=== PATIENT | female | born 1935 | race African-American/Black ===

== ENCOUNTER 2016-03-22 10:24 | Day surgery (SDC) | payer OTHER, BC ==
[~2016-03-22] VITALS: Ht 170.2 cm; Wt 50.4 kg
[~2016-03-22 10:24] MED LIST: ADULT LOW DOSE81 M1 PO; AMLODIPINE BESY10 MG PO; AMLODIPINE BESYL5 MG PO; AMLOPIDINE; ANUCORT-HC25 MG PR; ARICEPT10 MG PO; ASPIR 8181 M1 PO; ASPIR-LOW81 MG PO; ASPIRIN E.C.81 M1 PO; ASPIRIN81 M1 PO; Aranesp IV; Aricept PO; BENADRYL25 MG PO; BYSTOLIC5 MG PO; CALCIUM ACETAT667 MG PO; CALTRATE; CARAFATE1 GM PO; CATHFLO ACT2 MG/2 ML IJ; CIPRO500 MG PO; CLONIDINE HCL0.1 MG PO; COLACE100 MG PO; Calcium Carbonate,Ca PO; Diatx W/Zinc,Folbee PO; EPOGEN,PRO10000 UNIT IV; FLAGYL500 MG PO; FOLBEE PLUS TABL5 MG PO; FOSRENOL500 MG PO; Flovent 110 mcg IH; GABAPENTIN100 MG PO; GABAPENTIN300 MG PO; HALDOL5 MG PO; HYDROCODON-ACE1 EAC7 PO; K-Dur PO; KENALOG,ARISTOC80 GM TP; KLOR-CON M2020 MEQ PO; Keflex PO; LABETALOL HCL100 MG PO; LABETALOL HCL200 MG PO; LISINOPRIL10 MG PO; LOMOTIL TABLET1 EACH PO; Levaquin PO; MEDROL DOSEPAK4 MG PO; MEGACE40 M1 PO; MEGACE400 MG/10 PO; MOTRIN600 MG PO; NAMENDA5 MG PO; NEPHRO-VITE,1 TABLET PO; NEURONTIN100 MG PO; NEURONTIN300 MG PO; NIFEDIPINE ER60 MG PO; NORVASC; NORVASC10 MG PO; Neurontin PO; OMEPRAZOLE20 MG PO; PANTOPRAZOLE SO40 MG PO; PROCRIT10000 UNI1 IV; PROCTOCREAM-HC30 GM PR; PROTONIX40 MG PO; Phoslo PO; PriLOSEC PO; RANITIDINE HCL300 M1 PO; RANITIDINE HCL300 MG PO; RENVELA800 MG PO; Rocaltrol PO; SENSIPAR30 MG PO; ST. JOSEPH ASPI81 MG PO; TRAMADOL HCL50 MG PO; TRAZODONE HCL50 MG PO; Tylenol Regular Stre PO; ZESTRIL10 MG PO; ZESTRIL20 MG PO; ZYPREXA5 MG PO
[2016-03-22 11:00] VITALS: BP 217/97
[2016-03-22 11:00] LABS: HEMATOCRIT 25.7 % (36.0-46.0); MCH 28.1 PG (29.0-34.0); MCV 93.8 FL (83-99); MEAN PLAT.VOLUME 8.6 uM^3 (9.5-12.4); PLATELET COUNT 234 K/uL (156-360); RBC DIS.WIDTH-CV 19.9 % (11.8-14.6); RBC DIS.WIDTH-SD 60.5 % (39-53); RED BLOOD COUNT 2.74 M/uL (3.80-5.20); WHITE BLOOD COUNT 4.2 K/uL (4.1-10.2)
[2016-03-22 11:10] LABS: CHLORIDE 97 mEq/L (99-109); POTASSIUM 4.1 mEq/L (3.7-5.4); SODIUM 137 mEq/L (136-147)
[2016-03-22 11:11] LABS: GLUCOSE 85 mg/dL (70-99)
[2016-03-22 11:13] LABS: ANION GAP 11 MEQ/L (2-14)
[2016-03-22 11:15] LABS: GFR ESTIMATE (CALCULATED) 8 mL/min/
[2016-03-22 11:16] LABS: UREA NITROGEN (BUN) 20 mg/dL (9-23)
[2016-03-22 11:25] VITALS: BP 205/94
[2016-03-22 11:32] VITALS: BP 209/90
[2016-03-22 16:07] VITALS: BP 167/68; BP 167/72
== END 2016-03-22 16:25 | disposition home or self-care (01) ==
LOC: SDC 10:24
PROVIDERS: Surgery
PROC: 03WY0JZ Revision of Synthetic Substitute in Upper Artery, Open Approach (ICD-10-PCS; principal; 2016-03-22)
DX: T82.858A Stenosis of other vascular prosthetic devices, implants and grafts, initial encounter (principal); Y83.2 Surgical operation with anastomosis, bypass or graft as the cause of abnormal reaction of the patient, or of later complication, without mention of misadventure at the time of the procedure; Z99.2 Dependence on renal dialysis; I12.0 Hypertensive chronic kidney disease with stage 5 chronic kidney disease or end stage renal disease; N18.6 End stage renal disease
CPT/HCPCS: 80048; 85027; C1768; C2628; J0360; J0690; J1644; J2250; J2720; J3010

== ENCOUNTER 2016-04-29 07:59 | Emergency (ER) | payer OTHER, BC ==
[~2016-04-29] VITALS: Ht 170.2 cm; Wt 52.2 kg
[2016-04-29 09:44] LABS: HEMATOCRIT 34.3 % (36.0-46.0); MCH 28.8 PG (29.0-34.0); MCHC 30.6 G/DL (30.0-36.0); MEAN PLAT.VOLUME 10.2 uM^3 (9.5-12.4); PLATELET COUNT 132 K/uL (156-360); RBC DIS.WIDTH-CV 19.2 % (11.8-14.6); RBC DIS.WIDTH-SD 63.3 % (39-53); RED BLOOD COUNT 3.65 M/uL (3.80-5.20); WHITE BLOOD COUNT 6.2 K/uL (4.1-10.2)
[2016-04-29 09:52] LABS: CHLORIDE 96 mEq/L (99-109); POTASSIUM 4.4 mEq/L (3.7-5.4); SODIUM 140 mEq/L (136-147)
[2016-04-29 09:54] LABS: GLUCOSE 89 mg/dL (70-99)
[2016-04-29 09:55] LABS: ANION GAP 15 MEQ/L (2-14)
[2016-04-29 09:56] LABS: TOTAL BILIRUBIN 0.9 mg/dL (0.0-1.0)
[2016-04-29 09:58] LABS: ALKALINE PHOSPHATASE 90 IU/L (3-129); GFR ESTIMATE (CALCULATED) 7 mL/min/
[2016-04-29 09:59] LABS: UREA NITROGEN (BUN) 36 mg/dL (9-23)
[2016-04-29 10:01] LABS: URIC ACID 5.4 mg/dL (3.1-9.2)
[2016-04-29 12:28] LABS: RED CELL COUNT 94000 /MM^3 (0-1); WHITE CELL COUNT 19320 /MM^3 (0-200.0)
[2016-04-29 13:12] LABS: MONO RAW COUNT 6; MONONUCLEAR WBC'S 3 %; POLY RAW COUNT 194; POLYNUCLEAR WBC'S 97 % (0-25); SYNOVIAL FLUID EOSINOPHILS 0 % (0-25)
[2016-04-29 15:43] VITALS: BP 168/92
== END 2016-04-29 16:12 | disposition home or self-care (01) ==
LOC: EME 07:59
PROVIDERS: Nurse Practitioner Family
PROC: 0S9C3ZZ Drainage of Right Knee Joint, Percutaneous Approach (ICD-10-PCS; principal; 2016-04-29)
DX: M25.461 Effusion, right knee (principal); I12.0 Hypertensive chronic kidney disease with stage 5 chronic kidney disease or end stage renal disease; N18.6 End stage renal disease; Z99.2 Dependence on renal dialysis; Z85.038 Personal history of other malignant neoplasm of large intestine
CPT/HCPCS: 73564; 80053; 84550; 85027; 87205; 89051; 89060; 99281; 99284

== ENCOUNTER 2016-05-31 02:36 | Inpatient (IN) | payer OTHER, BC ==
[~2016-05-31] VITALS: Ht 170.2 cm; Wt 47.1 kg
[2016-05-31 03:45] LABS: EOSINOPHIL (%) 1.2 % (0-5); EOSINOPHIL COUNT 0.1 K/uL (0-0.3); HEMATOCRIT 43.4 % (36.0-46.0); IMMATURE GRANULOCYTE (%) 1.1 % (0.0-0.7); IMMATURE GRANULOCYTE COUNT 0.1 K/uL; INSTRUMENT ABS NEUTROPHIL CT 4.4 K/uL; LYMPHOCYTE COUNT 0.8 K/uL (1.0-2.8); MCH 27.3 PG (29.0-34.0); MCV 93.9 FL (83-99); MEAN PLAT.VOLUME 9.1 uM^3 (9.5-12.4); MONOCYTE (%) 4.8 % (3-12); MONOCYTE COUNT 0.3 K/uL (0-0.8); NEUTROPHIL (%) 77.9 % (45-76); NEUTROPHIL COUNT 4.4 K/uL (1.8-6.4); NRBC (%) 0.9 /100 WBC (0-0); PLATELET COUNT 90 K/uL (156-360); RBC DIS.WIDTH-CV 19.9 % (11.8-14.6); RBC DIS.WIDTH-SD 64.4 % (39-53); RED BLOOD COUNT 4.62 M/uL (3.80-5.20); WHITE BLOOD COUNT 5.6 K/uL (4.1-10.2)
[2016-05-31 03:56] LABS: CHLORIDE 104 mEq/L (99-109); POTASSIUM 4.4 mEq/L (3.7-5.4); SODIUM 143 mEq/L (136-147)
[2016-05-31 03:58] LABS: GLUCOSE 97 mg/dL (70-99)
[2016-05-31 04:00] LABS: ANION GAP 13 MEQ/L (2-14); TOTAL BILIRUBIN 0.6 mg/dL (0.0-1.0)
[2016-05-31 04:02] LABS: ALKALINE PHOSPHATASE 110 IU/L (3-129); GFR ESTIMATE (CALCULATED) 5 mL/min/
[2016-05-31 04:03] LABS: UREA NITROGEN (BUN) 32 mg/dL (9-23)
[2016-05-31 04:04] LABS: TROP-I INTERPRETATION NEGATIVE; TROPONIN-I 0.07 ng/mL (0.0-0.30)
[2016-05-31] MEDS ORDERED: LABETALOL HCL100 MG PO (09:21)
[2016-05-31] MEDS ORDERED: SENSIPAR30 MG PO (09:24)
[2016-05-31] MEDS ORDERED: VIBERZI75 MG PO (09:28)
[2016-05-31 13:03] LABS: TROP-I INTERPRETATION NEGATIVE; TROPONIN-I 0.12 ng/mL (0.0-0.30)
[2016-05-31 18:18] VITALS: BP 146/67
[2016-05-31 19:00] VITALS: BP 157/72
[2016-05-31 19:21] LABS: TROP-I INTERPRETATION NEGATIVE
[2016-05-31 22:51] VITALS: BP 148/70
[2016-06-01 04:36] VITALS: BP 144/66
[2016-06-01 07:02] LABS: ALKALINE PHOSPHATASE 70 IU/L (3-129); ANION GAP 9 MEQ/L (2-14); CHLORIDE 101 MEQ/L (99-109); GFR ESTIMATE (CALCULATED) 10 mL/min/; GLUCOSE 98 mg/dL (70-99); POTASSIUM 4.5 MEQ/L (3.7-5.4); SAMPLE HEMOLYSIS CHECK 0; SAMPLE ICTERIC CHECK 0; SAMPLE LIPEMIA CHECK 0; SODIUM 139 MEQ/L (136-147); TOTAL BILIRUBIN 0.9 MG/DL (0.0-1.0); UREA NITROGEN (BUN) 17 mg/dL (9-23)
[2016-06-01 07:19] LABS: HEMATOCRIT 36.6 % (36.0-46.0); MCH 27.2 PG (29.0-34.0); MCHC 29.2 G/DL (30.0-36.0); MCV 93.1 FL (83-99); RBC DIS.WIDTH-CV 19.9 % (11.8-14.6); RBC DIS.WIDTH-SD 65.5 % (39-53); RED BLOOD COUNT 3.93 M/uL (3.80-5.20)
[2016-06-01 08:24] LABS: IMM.PLATELET FRACTION 2.1 (1-7); PLATELET COUNT 49 K/uL (156-360)
[2016-06-01 10:30] VITALS: BP 168/77
[2016-06-01 13:00] VITALS: BP 185/81
[2016-06-01 16:11] VITALS: BP 153/69
[2016-06-01 19:21] VITALS: BP 127/60
[2016-06-02 00:02] VITALS: BP 149/85
[2016-06-02 04:05] VITALS: BP 160/74
[2016-06-02 06:34] LABS: EOSINOPHIL (%) 0.8 % (0-5); HEMATOCRIT 37.4 % (36.0-46.0); IMMATURE GRANULOCYTE (%) 0.8 % (0.0-0.7); INSTRUMENT ABS NEUTROPHIL CT 2.3 K/uL; LYMPHOCYTE COUNT 0.8 K/uL (1.0-2.8); MCH 26.9 PG (29.0-34.0); MCHC 28.9 G/DL (30.0-36.0); MCV 93.3 FL (83-99); MONOCYTE (%) 11.9 % (3-12); MONOCYTE COUNT 0.4 K/uL (0-0.8); NEUTROPHIL (%) 64.4 % (45-76); NEUTROPHIL COUNT 2.3 K/uL (1.8-6.4); RBC DIS.WIDTH-CV 19.5 % (11.8-14.6); RBC DIS.WIDTH-SD 65.4 % (39-53); RED BLOOD COUNT 4.01 M/uL (3.80-5.20); WHITE BLOOD COUNT 3.5 K/uL (4.1-10.2)
[2016-06-02 07:48] VITALS: BP 163/76
[2016-06-02 09:01] LABS: PLAT.SUFFICIENCY DECREASED; PLATELET COUNT 60 K/uL (156-360)
[2016-06-02 11:06] VITALS: BP 170/74
[2016-06-02] MEDS ORDERED: LEVOFLOXACIN500 MG PO (11:31)
[2016-06-02] MEDS ORDERED: CLONIDINE HCL0.2 MG PO (11:32)
== END 2016-06-02 16:16 | disposition home or self-care (01) | DRG 640 ==
LOC: EME 02:36 → 4EAST 06:14 → EDOF 06:14 → 4EAST 06:14
PROVIDERS: Emergency Medicine; Hospitalist; Internal Medicine Pulmonary Disease
PROC: 5A1D00Z (ICD-10-PCS; principal; 2016-06-01)
DX: E87.70 Fluid overload, unspecified (principal); J96.01 Acute respiratory failure with hypoxia; J18.9 Pneumonia, unspecified organism; J90 Pleural effusion, not elsewhere classified; I50.31 Acute diastolic (congestive) heart failure; N18.6 End stage renal disease; D69.6 Thrombocytopenia, unspecified; I31.3 Pericardial effusion (noninflammatory); I13.2 Hypertensive heart and chronic kidney disease with heart failure and with stage 5 chronic kidney disease, or end stage renal disease; Z99.2 Dependence on renal dialysis; I16.0 Hypertensive urgency; I25.10 Atherosclerotic heart disease of native coronary artery without angina pectoris; K57.90 Diverticulosis of intestine, part unspecified, without perforation or abscess without bleeding; Z90.49 Acquired absence of other specified parts of digestive tract; Z85.038 Personal history of other malignant neoplasm of large intestine; R63.6 Underweight; Z68.1 Body mass index [BMI] 19.9 or less, adult
CPT/HCPCS: 71020; 71250; 78582; 80053; 83880; 84484; 85025; 85027; 93005; 94010; 94799; 99281; 99285; A9540; A9567; J0360

== ENCOUNTER 2016-07-14 13:20 | Day surgery (SDC) | payer OTHER, BC ==
[~2016-07-14] VITALS: Ht 170.2 cm; Wt 49.9 kg
[~2016-07-14 13:20] MED LIST changes: +CLONIDINE HCL0.2 MG PO; +LEVOFLOXACIN500 MG PO; +VIBERZI75 MG PO
[2016-07-14 15:00] LABS: METH RESISTANT S AUREUS PCR POSITIVE (NEGATIVE)
[2016-07-14 15:01] LABS: PROBE CHECK PASS
== END 2016-07-14 15:34 | disposition home or self-care (01) ==
LOC: CATH 13:20
PROVIDERS: Surgery
PROC: 037Y3ZZ Dilation of Upper Artery, Percutaneous Approach (ICD-10-PCS; principal; 2016-07-14)
DX: T82.858A Stenosis of other vascular prosthetic devices, implants and grafts, initial encounter (principal); I12.0 Hypertensive chronic kidney disease with stage 5 chronic kidney disease or end stage renal disease; N18.6 End stage renal disease; Z99.2 Dependence on renal dialysis; Z85.038 Personal history of other malignant neoplasm of large intestine; Z79.82 Long term (current) use of aspirin
CPT/HCPCS: 87641; C1725; C1769; C1894; J0360; J0583; J2250; J3010; J7050

== ENCOUNTER 2016-10-18 07:46 | Inpatient (IN) | payer OTHER, BC ==
[2016-10-18] VITALS (7 sets, daily range): BP systolic 148–204; BP diastolic 69–98
[~2016-10-18] VITALS: Ht 160 cm; Wt 48.8 kg
[2016-10-18 10:06] LABS: EOSINOPHIL (%) 4.7 % (0-5); EOSINOPHIL COUNT 0.2 K/uL (0-0.3); HEMATOCRIT 39.2 % (36.0-46.0); IMMATURE GRANULOCYTE (%) 0.8 % (0.0-0.7); INSTRUMENT ABS NEUTROPHIL CT 3.2 K/uL; LYMPHOCYTE COUNT 0.9 K/uL (1.0-2.8); MCH 28.8 PG (29.0-34.0); MCHC 30.4 G/DL (30.0-36.0); MCV 94.9 FL (83-99); MONOCYTE (%) 10.6 % (3-12); MONOCYTE COUNT 0.5 K/uL (0-0.8); NEUTROPHIL COUNT 3.2 K/uL (1.8-6.4); RBC DIS.WIDTH-CV 17.6 % (11.8-14.6); RED BLOOD COUNT 4.13 M/uL (3.80-5.20); WHITE BLOOD COUNT 4.9 K/uL (4.1-10.2)
[2016-10-18 10:08] LABS: CHLORIDE 91 mEq/L (99-109); SODIUM 135 mEq/L (136-147)
[2016-10-18 10:10] LABS: GLUCOSE 78 mg/dL (70-99)
[2016-10-18 10:11] LABS: ANION GAP 16 MEQ/L (2-14)
[2016-10-18 10:14] LABS: GFR ESTIMATE (CALCULATED) 9 mL/min/
[2016-10-18 10:15] LABS: UREA NITROGEN (BUN) 31 mg/dL (9-23)
[2016-10-18 10:18] LABS: POTASSIUM 6.1 mEq/L (3.7-5.4)
[2016-10-18 10:33] LABS: INTER. NORMALIZED RATIO 1.1; PROTHROMBIN TIME 12.2 SEC (10.2-12.9)
[2016-10-18 10:39] LABS: MEAN PLAT.VOLUME 8.8 uM^3 (9.5-12.4); PLAT.SUFFICIENCY DECREASED; PLATELET COUNT 96 K/uL (156-360)
[2016-10-18 12:05] LABS: POINT-OF-CARE METER ID UU14100415
[2016-10-18] MEDS ORDERED: CLONIDINE HCL0.1 MG PO ×2 (12:17→12:29)
[2016-10-18] MEDS ORDERED: SENSIPAR30 MG PO (12:52)
[2016-10-18] MEDS ORDERED: HYDROCODON-ACE1 EAC7 PO (12:57)
[2016-10-18 12:58] LABS: HEMATOCRIT 29.8 % (36.0-46.0); MCV 94.3 FL (83-99)
[2016-10-18 18:13] LABS: HEMATOCRIT 36.5 % (36.0-46.0); MCH 29.7 PG (29.0-34.0); MCHC 32.3 G/DL (30.0-36.0); MCV 91.9 FL (83-99); MEAN PLAT.VOLUME 8.7 uM^3 (9.5-12.4); PLATELET COUNT 71 K/uL (156-360); RBC DIS.WIDTH-CV 17.2 % (11.8-14.6); RBC DIS.WIDTH-SD 56.9 % (39-53); RED BLOOD COUNT 3.97 M/uL (3.80-5.20); WHITE BLOOD COUNT 5.3 K/uL (4.1-10.2)
[2016-10-18 20:10] LABS: HEMATOCRIT 34.6 % (36.0-46.0); MCV 92.8 FL (83-99)
[2016-10-18 20:18] LABS: METH RESISTANT S AUREUS PCR NEGATIVE (NEGATIVE)
[2016-10-18 20:26] LABS: PROBE CHECK PASS; SPECIMEN PROCESSING CONTROL PASS
[2016-10-19] VITALS (8 sets, daily range): BP systolic 122–162; BP diastolic 58–73
[2016-10-19 05:04] LABS: EOSINOPHIL (%) 3.8 % (0-5); EOSINOPHIL COUNT 0.2 K/uL (0-0.3); HEMATOCRIT 31.8 % (36.0-46.0); IMMATURE GRANULOCYTE (%) 0.9 % (0.0-0.7); IMMATURE GRANULOCYTE COUNT 0.1 K/uL; INSTRUMENT ABS NEUTROPHIL CT 3.6 K/uL; LYMPHOCYTE COUNT 0.9 K/uL (1.0-2.8); MCH 29.2 PG (29.0-34.0); MCHC 32.1 G/DL (30.0-36.0); MCV 91.1 FL (83-99); MEAN PLAT.VOLUME 9.4 uM^3 (9.5-12.4); MONOCYTE (%) 13.1 % (3-12); MONOCYTE COUNT 0.7 K/uL (0-0.8); NEUTROPHIL (%) 64.9 % (45-76); NEUTROPHIL COUNT 3.6 K/uL (1.8-6.4); PLATELET COUNT 89 K/uL (156-360); RBC DIS.WIDTH-CV 17.3 % (11.8-14.6); RBC DIS.WIDTH-SD 56.8 % (39-53); RED BLOOD COUNT 3.49 M/uL (3.80-5.20); WHITE BLOOD COUNT 5.6 K/uL (4.1-10.2)
[2016-10-19 05:27] LABS: CHLORIDE 95 mEq/L (99-109); SODIUM 136 mEq/L (136-147)
[2016-10-19 05:30] LABS: GLUCOSE 103 mg/dL (70-99); POTASSIUM 4.6 mEq/L (3.7-5.4)
[2016-10-19 05:31] LABS: ANION GAP 10 MEQ/L (2-14); TOTAL BILIRUBIN 0.9 mg/dL (0.0-1.0)
[2016-10-19 05:33] LABS: ALKALINE PHOSPHATASE 93 IU/L (3-129); GFR ESTIMATE (CALCULATED) 14 mL/min/
[2016-10-19 05:34] LABS: UREA NITROGEN (BUN) 19 mg/dL (9-23)
[2016-10-19 20:35] LABS: MCV 92.8 FL (83-99)
[2016-10-20] VITALS: BP 129/56
[2016-10-20 04:00] VITALS: BP 119/58
[2016-10-20 05:39] LABS: EOSINOPHIL (%) 5.1 % (0-5); EOSINOPHIL COUNT 0.3 K/uL (0-0.3); HEMATOCRIT 29.5 % (36.0-46.0); IMMATURE GRANULOCYTE (%) 0.7 % (0.0-0.7); INSTRUMENT ABS NEUTROPHIL CT 3.6 K/uL; LYMPHOCYTE COUNT 0.9 K/uL (1.0-2.8); MCHC 32.2 G/DL (30.0-36.0); MCV 93.1 FL (83-99); MEAN PLAT.VOLUME 9.8 uM^3 (9.5-12.4); MONOCYTE (%) 11.4 % (3-12); MONOCYTE COUNT 0.6 K/uL (0-0.8); NEUTROPHIL (%) 66.3 % (45-76); NEUTROPHIL COUNT 3.6 K/uL (1.8-6.4); PLATELET COUNT 86 K/uL (156-360); RBC DIS.WIDTH-CV 16.7 % (11.8-14.6); RBC DIS.WIDTH-SD 56.1 % (39-53); RED BLOOD COUNT 3.17 M/uL (3.80-5.20); WHITE BLOOD COUNT 5.5 K/uL (4.1-10.2)
[2016-10-20 05:57] LABS: ANION GAP 10 MEQ/L (2-14); CHLORIDE 96 MEQ/L (99-109); GFR ESTIMATE (CALCULATED) 17 mL/min/; GLUCOSE 95 mg/dL (70-99); POTASSIUM 3.9 MEQ/L (3.7-5.4); SAMPLE HEMOLYSIS CHECK 0; SAMPLE ICTERIC CHECK 0; SAMPLE LIPEMIA CHECK 0; SODIUM 131 MEQ/L (136-147); UREA NITROGEN (BUN) 14 mg/dL (9-23)
[2016-10-20 08:00] VITALS: BP 124/56
[2016-10-20 10:00] VITALS: BP 102/52
[2016-10-20] MEDS ORDERED: HEMORRHOIDAL S1 EAC2 PR (10:32)
[2016-10-20 12:00] VITALS: BP 116/74
[2016-10-21] MEDS ORDERED: LOMOTIL TABLET1 EACH PO (20:42)
== END 2016-10-20 13:59 | disposition home health service (06) | DRG 377 ==
LOC: EME 07:46 → 4WEST 11:38 → EDOF 11:38 → ENRESERV 11:48 → EDOF 11:48 → ENRESERV 11:55 → CANRESERV 12:34 → EDOF 12:45 → ENRESERV 13:57 → 4WEST 17:49
PROVIDERS: Emergency Medicine; Hospitalist; Internal Medicine Nephrology
PROC: 30233N1 Transfusion of Nonautologous Red Blood Cells into Peripheral Vein, Percutaneous Approach (ICD-10-PCS; principal; 2016-10-18)
PROC: 0DJD8ZZ Inspection of Lower Intestinal Tract, Via Natural or Artificial Opening Endoscopic (ICD-10-PCS; 2016-10-19)
PROC: 0DJ08ZZ Inspection of Upper Intestinal Tract, Via Natural or Artificial Opening Endoscopic (ICD-10-PCS; 2016-10-19)
DX: K57.31 Diverticulosis of large intestine without perforation or abscess with bleeding (principal); K55.9 Vascular disorder of intestine, unspecified; I12.0 Hypertensive chronic kidney disease with stage 5 chronic kidney disease or end stage renal disease; N18.6 End stage renal disease; E87.5 Hyperkalemia; D62 Acute posthemorrhagic anemia; Z99.2 Dependence on renal dialysis; K64.8 Other hemorrhoids; Z90.49 Acquired absence of other specified parts of digestive tract; Z85.038 Personal history of other malignant neoplasm of large intestine; Z82.0 Family history of epilepsy and other diseases of the nervous system; D50.0 Iron deficiency anemia secondary to blood loss (chronic); Z87.19 Personal history of other diseases of the digestive system
CPT/HCPCS: 80048; 80053; 82948; 85014; 85018; 85025; 85025 91; 85027; 85610; 86900; 86901; 86920; 87641; 93005; 99281; 99285; C9113; P9016

== ENCOUNTER 2016-10-21 17:35 | Inpatient (IN) | payer OTHER, BC ==
[~2016-10-21] VITALS: Ht 160 cm; Wt 49.1 kg
[~2016-10-21 17:35] MED LIST changes: +HEMORRHOIDAL S1 EAC2 PR
[2016-10-21 20:00] LABS: MCH 29.2 PG (29.0-34.0); MCHC 31.7 G/DL (30.0-36.0); MCV 92.1 FL (83-99); MEAN PLAT.VOLUME 8.9 uM^3 (9.5-12.4); PLATELET COUNT 67 K/uL (156-360); RBC DIS.WIDTH-CV 16.1 % (11.8-14.6); RBC DIS.WIDTH-SD 54.2 % (39-53); RED BLOOD COUNT 3.15 M/uL (3.80-5.20); WHITE BLOOD COUNT 21.5 K/uL (4.1-10.2)
[2016-10-21 20:07] LABS: CHLORIDE 96 mEq/L (99-109); POTASSIUM 3.3 mEq/L (3.7-5.4); SODIUM 136 mEq/L (136-147)
[2016-10-21 20:09] LABS: GLUCOSE 103 mg/dL (70-99)
[2016-10-21 20:10] LABS: ANION GAP 10 MEQ/L (2-14)
[2016-10-21 20:12] LABS: ALKALINE PHOSPHATASE 98 IU/L (3-129)
[2016-10-21 20:13] LABS: GFR ESTIMATE (CALCULATED) 18 mL/min/; TOTAL BILIRUBIN 0.7 mg/dL (0.0-1.0)
[2016-10-21 20:14] LABS: DIRECT BILIRUBIN 0.4 mg/dL (0.0-0.3); UREA NITROGEN (BUN) 11 mg/dL (9-23)
[2016-10-21 20:16] LABS: LIPASE 13 U/L (1.0-51.0)
[2016-10-21] MEDS ORDERED: LOMOTIL TABLET1 EACH PO (20:42)
[2016-10-22 00:24] VITALS: BP 126/60
[2016-10-22 02:59] VITALS: BP 130/63
[2016-10-22 07:21] LABS: HEMATOCRIT 25.9 % (36.0-46.0); MCH 29.7 PG (29.0-34.0); MCHC 31.7 G/DL (30.0-36.0); MCV 93.8 FL (83-99); MEAN PLAT.VOLUME 9.9 uM^3 (9.5-12.4); PLATELET COUNT 75 K/uL (156-360); RBC DIS.WIDTH-CV 16.3 % (11.8-14.6); RBC DIS.WIDTH-SD 55.7 % (39-53); RED BLOOD COUNT 2.76 M/uL (3.80-5.20); WHITE BLOOD COUNT 15.8 K/uL (4.1-10.2)
[2016-10-22 08:05] VITALS: BP 121/59
[2016-10-22 08:06] LABS: ALKALINE PHOSPHATASE 77 IU/L (3-129); ANION GAP 9 MEQ/L (2-14); CHLORIDE 99 MEQ/L (99-109); GLUCOSE 76 mg/dL (70-99); SAMPLE HEMOLYSIS CHECK 0; SAMPLE ICTERIC CHECK 0; SAMPLE LIPEMIA CHECK 0; SODIUM 136 MEQ/L (136-147); TOTAL BILIRUBIN 0.7 MG/DL (0.0-1.0); UREA NITROGEN (BUN) 20 mg/dL (9-23)
[2016-10-22 08:09] LABS: GFR ESTIMATE (CALCULATED) 15 mL/min/
[2016-10-22 11:40] VITALS: BP 115/58
[2016-10-22 16:45] VITALS: BP 102/54
[2016-10-22 18:27] LABS: HEMATOCRIT 26.7 % (36.0-46.0); MCV 95.4 FL (83-99)
[2016-10-22 23:53] VITALS: BP 118/58
[2016-10-23 06:46] LABS: EOSINOPHIL (%) 3.1 % (0-5); EOSINOPHIL COUNT 0.3 K/uL (0-0.3); IMMATURE GRANULOCYTE (%) 0.8 % (0.0-0.7); IMMATURE GRANULOCYTE COUNT 0.1 K/uL; INSTRUMENT ABS NEUTROPHIL CT 8.9 K/uL; LYMPHOCYTE COUNT 1.1 K/uL (1.0-2.8); MCH 29.8 PG (29.0-34.0); MCHC 31.2 G/DL (30.0-36.0); MCV 95.4 FL (83-99); MONOCYTE COUNT 0.8 K/uL (0-0.8); NEUTROPHIL (%) 79.4 % (45-76); NEUTROPHIL COUNT 8.9 K/uL (1.8-6.4); PLATELET COUNT 109 K/uL (156-360); RBC DIS.WIDTH-CV 15.9 % (11.8-14.6); RBC DIS.WIDTH-SD 55.4 % (39-53); RED BLOOD COUNT 2.62 M/uL (3.80-5.20); WHITE BLOOD COUNT 11.1 K/uL (4.1-10.2)
[2016-10-23 07:18] LABS: ANION GAP 10 MEQ/L (2-14); CHLORIDE 101 MEQ/L (99-109); GLUCOSE 85 mg/dL (70-99); SAMPLE HEMOLYSIS CHECK 0; SAMPLE ICTERIC CHECK 0; SAMPLE LIPEMIA CHECK 0; SODIUM 137 MEQ/L (136-147); UREA NITROGEN (BUN) 29 mg/dL (9-23)
[2016-10-23 07:21] LABS: GFR ESTIMATE (CALCULATED) 11 mL/min/
[2016-10-23 07:30] VITALS: BP 109/54
[2016-10-23 12:41] LABS: HEMATOCRIT 26.5 % (36.0-46.0); MCV 95.7 FL (83-99)
[2016-10-23 15:20] VITALS: BP 99/54
[2016-10-24 00:13] VITALS: BP 129/63
[2016-10-24 06:40] VITALS: BP 132/58
[2016-10-24 06:44] LABS: EOSINOPHIL (%) 2.4 % (0-5); EOSINOPHIL COUNT 0.3 K/uL (0-0.3); IMMATURE GRANULOCYTE COUNT 0.1 K/uL; INSTRUMENT ABS NEUTROPHIL CT 8.6 K/uL; LYMPHOCYTE COUNT 0.9 K/uL (1.0-2.8); MCHC 31.5 G/DL (30.0-36.0); MCV 95.4 FL (83-99); MEAN PLAT.VOLUME 10.5 uM^3 (9.5-12.4); MONOCYTE (%) 5.6 % (3-12); MONOCYTE COUNT 0.6 K/uL (0-0.8); NEUTROPHIL (%) 81.7 % (45-76); NEUTROPHIL COUNT 8.6 K/uL (1.8-6.4); RBC DIS.WIDTH-CV 15.9 % (11.8-14.6); RBC DIS.WIDTH-SD 55.8 % (39-53); RED BLOOD COUNT 2.83 M/uL (3.80-5.20); WHITE BLOOD COUNT 10.5 K/uL (4.1-10.2)
[2016-10-24 06:49] LABS: PLATELET COUNT 166 K/uL (156-360)
[2016-10-24 07:24] LABS: ANION GAP 12 MEQ/L (2-14); CHLORIDE 101 MEQ/L (99-109); GLUCOSE 95 mg/dL (70-99); POTASSIUM 4.3 MEQ/L (3.7-5.4); SAMPLE HEMOLYSIS CHECK 0; SAMPLE ICTERIC CHECK 0; SAMPLE LIPEMIA CHECK 0; SODIUM 137 MEQ/L (136-147); UREA NITROGEN (BUN) 34 mg/dL (9-23)
[2016-10-24 07:26] LABS: GFR ESTIMATE (CALCULATED) 8 mL/min/
[2016-10-24 11:57] VITALS: BP 137/64
[2016-10-24 23:23] VITALS: BP 131/69
[2016-10-25 06:51] LABS: EOSINOPHIL (%) 2.4 % (0-5); EOSINOPHIL COUNT 0.2 K/uL (0-0.3); HEMATOCRIT 27.2 % (36.0-46.0); IMMATURE GRANULOCYTE (%) 1.8 % (0.0-0.7); IMMATURE GRANULOCYTE COUNT 0.1 K/uL; INSTRUMENT ABS NEUTROPHIL CT 5.1 K/uL; LYMPHOCYTE COUNT 1.1 K/uL (1.0-2.8); MCH 29.9 PG (29.0-34.0); MCHC 31.3 G/DL (30.0-36.0); MCV 95.8 FL (83-99); MEAN PLAT.VOLUME 9.4 uM^3 (9.5-12.4); MONOCYTE (%) 8.2 % (3-12); MONOCYTE COUNT 0.6 K/uL (0-0.8); NEUTROPHIL COUNT 5.1 K/uL (1.8-6.4); NRBC (%) 0.8 /100 WBC (0-0); PLATELET COUNT 145 K/uL (156-360); RBC DIS.WIDTH-CV 16.3 % (11.8-14.6); RBC DIS.WIDTH-SD 56.6 % (39-53); RED BLOOD COUNT 2.84 M/uL (3.80-5.20); WHITE BLOOD COUNT 7.1 K/uL (4.1-10.2)
[2016-10-25 07:38] LABS: ANION GAP 10 MEQ/L (2-14); CHLORIDE 101 MEQ/L (99-109); GFR ESTIMATE (CALCULATED) 12 mL/min/; GLUCOSE 85 mg/dL (70-99); POTASSIUM 3.7 MEQ/L (3.7-5.4); SAMPLE HEMOLYSIS CHECK 0; SAMPLE ICTERIC CHECK 0; SAMPLE LIPEMIA CHECK 0; SODIUM 138 MEQ/L (136-147); UREA NITROGEN (BUN) 15 mg/dL (9-23)
[2016-10-25 08:00] VITALS: BP 149/70
[2016-10-25 15:52] VITALS: BP 142/60
[2016-10-25 23:17] VITALS: BP 139/64
[2016-10-26 07:58] LABS: EOSINOPHIL (%) 2.8 % (0-5); EOSINOPHIL COUNT 0.2 K/uL (0-0.3); IMMATURE GRANULOCYTE (%) 2.9 % (0.0-0.7); IMMATURE GRANULOCYTE COUNT 0.2 K/uL; INSTRUMENT ABS NEUTROPHIL CT 4.3 K/uL; LYMPHOCYTE COUNT 0.9 K/uL (1.0-2.8); MCH 29.9 PG (29.0-34.0); MCHC 31.1 G/DL (30.0-36.0); MCV 96.1 FL (83-99); MEAN PLAT.VOLUME 9.4 uM^3 (9.5-12.4); MONOCYTE (%) 8.8 % (3-12); MONOCYTE COUNT 0.5 K/uL (0-0.8); NEUTROPHIL (%) 70.1 % (45-76); NEUTROPHIL COUNT 4.3 K/uL (1.8-6.4); NRBC (%) 1.1 /100 WBC (0-0); PLATELET COUNT 148 K/uL (156-360); RBC DIS.WIDTH-CV 16.6 % (11.8-14.6); RBC DIS.WIDTH-SD 57.3 % (39-53); RED BLOOD COUNT 2.81 M/uL (3.80-5.20); WHITE BLOOD COUNT 6.2 K/uL (4.1-10.2)
[2016-10-26 08:20] LABS: ANION GAP 10 MEQ/L (2-14); CHLORIDE 99 MEQ/L (99-109); GFR ESTIMATE (CALCULATED) 8 mL/min/; GLUCOSE 131 mg/dL (70-99); POTASSIUM 3.5 MEQ/L (3.7-5.4); SAMPLE HEMOLYSIS CHECK 0; SAMPLE ICTERIC CHECK 0; SAMPLE LIPEMIA CHECK 0; SODIUM 135 MEQ/L (136-147); UREA NITROGEN (BUN) 20 mg/dL (9-23)
[2016-10-26 10:07] LABS: HBSG INDEX 0.15
[2016-10-26 10:08] LABS: AHBS INDEX 398.79
[2016-10-26 10:10] LABS: HEPATITIS B SURFACE ANTIBODY REACTIVE
[2016-10-26 11:41] VITALS: BP 152/67
[2016-10-26] MEDS ORDERED: FLAGYL500 MG PO (12:10)
== END 2016-10-26 13:30 | disposition home or self-care (01) | DRG 871 ==
LOC: EME 17:35 → EDOF 22:25 → 2EASTP 22:25 → ENRESERV 22:26 → EDOF 10-22 00:16 → 2EASTP 10-22 00:22
PROVIDERS: Emergency Medicine; Internal Medicine; Internal Medicine Nephrology; Student in an Organized Health Care Education/Training Program
PROC: 5A1D60Z (ICD-10-PCS; principal; 2016-10-24)
DX: A41.50 Gram-negative sepsis, unspecified (principal); N18.6 End stage renal disease; K92.2 Gastrointestinal hemorrhage, unspecified; I12.0 Hypertensive chronic kidney disease with stage 5 chronic kidney disease or end stage renal disease; E83.51 Hypocalcemia; R01.1 Cardiac murmur, unspecified; R19.7 Diarrhea, unspecified; R41.82 Altered mental status, unspecified; R53.1 Weakness; K29.70 Gastritis, unspecified, without bleeding; L84 Corns and callosities; K64.8 Other hemorrhoids; R47.81 Slurred speech; K59.00 Constipation, unspecified; R25.2 Cramp and spasm; Z90.49 Acquired absence of other specified parts of digestive tract; Z99.2 Dependence on renal dialysis; Z85.038 Personal history of other malignant neoplasm of large intestine; Z68.20 Body mass index [BMI] 20.0-20.9, adult; D63.1 Anemia in chronic kidney disease
CPT/HCPCS: 70450; 71010; 73610; 74177; 78278; 80048; 80053; 80069; 80076; 81003; 82040; 83605; 83690; 85014; 85018; 85025; 85027; 86706; 87040; 87340; 87493; 99281; 99285; A9512; A9560; J0610; J0881; J1956; J2543; J3370; J7030; J7040; J7050; S0030

== ENCOUNTER 2016-12-12 16:09 | Inpatient (IN) | payer OTHER, BC ==
[~2016-12-12] VITALS: Ht 175.3 cm; Wt 51.0 kg
[~2016-12-12 16:09] MED LIST changes: +NORMODYNE,TRAN200 MG PO
[2016-12-12 18:52] LABS: MCHC 29.7 G/DL (30.0-36.0); MCV 94.2 FL (83-99); MEAN PLAT.VOLUME 8.7 uM^3 (9.5-12.4); PLATELET COUNT 63 K/uL (156-360); RBC DIS.WIDTH-CV 20.4 % (11.8-14.6); RBC DIS.WIDTH-SD 71.8 % (39-53); RED BLOOD COUNT 3.82 M/uL (3.80-5.20); WHITE BLOOD COUNT 5.6 K/uL (4.1-10.2)
[2016-12-12 18:59] LABS: EOSINOPHIL (%) 0.4 % (0-5); IMMATURE GRANULOCYTE (%) 0.4 % (0.0-0.7); INSTRUMENT ABS NEUTROPHIL CT 4.3 K/uL; LYMPHOCYTE COUNT 0.8 K/uL (1.0-2.8); MONOCYTE (%) 8.3 % (3-12); MONOCYTE COUNT 0.5 K/uL (0-0.8); NEUTROPHIL (%) 75.6 % (45-76); NEUTROPHIL COUNT 4.3 K/uL (1.8-6.4)
[2016-12-12 19:09] LABS: CHLORIDE 101 mEq/L (99-109); POTASSIUM 4.7 mEq/L (3.7-5.4); SODIUM 141 mEq/L (136-147)
[2016-12-12 19:12] LABS: GLUCOSE 83 mg/dL (70-99)
[2016-12-12 19:13] LABS: ANION GAP 13 MEQ/L (2-14); TOTAL BILIRUBIN 1.2 mg/dL (0.0-1.0)
[2016-12-12 19:15] LABS: ALKALINE PHOSPHATASE 82 IU/L (3-129); GFR ESTIMATE (CALCULATED) 12 mL/min/
[2016-12-12 19:16] LABS: UREA NITROGEN (BUN) 17 mg/dL (9-23)
[2016-12-12 19:22] LABS: TROP-I INTERPRETATION NEGATIVE; TROPONIN-I 0.12 ng/mL (0.0-0.30)
[2016-12-13 03:06] VITALS: BP 201/94
[2016-12-13 04:29] VITALS: BP 189/87
[2016-12-13] MEDS ORDERED: SILVADENE20 GM TP (09:07)
[2016-12-13] MEDS ORDERED: VIBERZI75 MG PO (09:09)
[2016-12-13 09:45] VITALS: BP 236/102
[2016-12-13 10:39] VITALS: BP 188/77
[2016-12-13 12:30] VITALS: BP 164/72
[2016-12-13 14:33] LABS: EOSINOPHIL (%) 0.5 % (0-5); HEMATOCRIT 31.6 % (36.0-46.0); IMMATURE GRANULOCYTE (%) 0.9 % (0.0-0.7); IMMATURE GRANULOCYTE COUNT 0.1 K/uL; INSTRUMENT ABS NEUTROPHIL CT 4.6 K/uL; LYMPHOCYTE COUNT 0.6 K/uL (1.0-2.8); MCH 29.3 PG (29.0-34.0); MCV 94.6 FL (83-99); MEAN PLAT.VOLUME 9.1 uM^3 (9.5-12.4); MONOCYTE (%) 6.9 % (3-12); MONOCYTE COUNT 0.4 K/uL (0-0.8); NEUTROPHIL (%) 81.6 % (45-76); NEUTROPHIL COUNT 4.6 K/uL (1.8-6.4); PLATELET COUNT 67 K/uL (156-360); RBC DIS.WIDTH-CV 20.6 % (11.8-14.6); RED BLOOD COUNT 3.34 M/uL (3.80-5.20); WHITE BLOOD COUNT 5.7 K/uL (4.1-10.2)
[2016-12-13 14:43] LABS: ANION GAP 11 MEQ/L (2-14); CHLORIDE 102 MEQ/L (99-109); POTASSIUM 4.8 MEQ/L (3.7-5.4); SAMPLE HEMOLYSIS CHECK 0; SAMPLE ICTERIC CHECK 0; SAMPLE LIPEMIA CHECK 0; SODIUM 140 MEQ/L (136-147)
[2016-12-13 14:48] LABS: GFR ESTIMATE (CALCULATED) 10 mL/min/; GLUCOSE 96 mg/dL (70-99); UREA NITROGEN (BUN) 25 mg/dL (9-23)
[2016-12-13 19:45] VITALS: BP 162/72; BP 189/79
[2016-12-14] VITALS (7 sets, daily range): BP systolic 99–149; BP diastolic 58–88
[2016-12-14 07:53] LABS: HEMATOCRIT 29.2 % (36.0-46.0); MCHC 30.8 G/DL (30.0-36.0); MCV 94.2 FL (83-99); MEAN PLAT.VOLUME 9.5 uM^3 (9.5-12.4); PLATELET COUNT 69 K/uL (156-360); RBC DIS.WIDTH-CV 19.9 % (11.8-14.6); WHITE BLOOD COUNT 4.1 K/uL (4.1-10.2)
[2016-12-14 08:17] LABS: ANION GAP 12 MEQ/L (2-14); CHLORIDE 104 MEQ/L (99-109); POTASSIUM 4.8 MEQ/L (3.7-5.4); SAMPLE HEMOLYSIS CHECK 0; SAMPLE ICTERIC CHECK 0; SAMPLE LIPEMIA CHECK 0; SODIUM 142 MEQ/L (136-147)
[2016-12-14 08:22] LABS: GFR ESTIMATE (CALCULATED) 8 mL/min/; GLUCOSE 93 mg/dL (70-99); UREA NITROGEN (BUN) 35 mg/dL (9-23)
[2016-12-15] VITALS (7 sets, daily range): BP systolic 112–136; BP diastolic 54–66
[2016-12-15 05:30] LABS: HEMATOCRIT 32.1 % (36.0-46.0); MCH 28.8 PG (29.0-34.0); MCHC 30.8 G/DL (30.0-36.0); MCV 93.3 FL (83-99); MEAN PLAT.VOLUME 10.1 uM^3 (9.5-12.4); RBC DIS.WIDTH-CV 19.2 % (11.8-14.6); RBC DIS.WIDTH-SD 66.6 % (39-53); RED BLOOD COUNT 3.44 M/uL (3.80-5.20); WHITE BLOOD COUNT 6.8 K/uL (4.1-10.2)
[2016-12-15 05:55] LABS: ANION GAP 11 MEQ/L (2-14); CHLORIDE 101 MEQ/L (99-109); GLUCOSE 101 mg/dL (70-99); SAMPLE HEMOLYSIS CHECK 0; SAMPLE ICTERIC CHECK 0; SAMPLE LIPEMIA CHECK 0; SODIUM 140 MEQ/L (136-147); UREA NITROGEN (BUN) 23 mg/dL (9-23)
[2016-12-15 05:57] LABS: GFR ESTIMATE (CALCULATED) 12 mL/min/; POTASSIUM 3.8 MEQ/L (3.7-5.4)
[2016-12-15 06:06] LABS: PLATELET COUNT 93 K/uL (156-360)
[2016-12-16 03:48] VITALS: BP 136/80
[2016-12-16 07:21] VITALS: BP 127/61
[2016-12-16 08:29] LABS: EOSINOPHIL (%) 0.1 % (0-5); HEMATOCRIT 30.8 % (36.0-46.0); IMMATURE GRANULOCYTE (%) 0.6 % (0.0-0.7); IMMATURE GRANULOCYTE COUNT 0.1 K/uL; INSTRUMENT ABS NEUTROPHIL CT 10.1 K/uL; LYMPHOCYTE COUNT 0.9 K/uL (1.0-2.8); MCH 28.8 PG (29.0-34.0); MCHC 30.8 G/DL (30.0-36.0); MCV 93.3 FL (83-99); MEAN PLAT.VOLUME 9.5 uM^3 (9.5-12.4); MONOCYTE (%) 5.7 % (3-12); MONOCYTE COUNT 0.7 K/uL (0-0.8); NEUTROPHIL (%) 86.2 % (45-76); NEUTROPHIL COUNT 10.1 K/uL (1.8-6.4); PLATELET COUNT 106 K/uL (156-360); RBC DIS.WIDTH-CV 19.1 % (11.8-14.6); RBC DIS.WIDTH-SD 65.7 % (39-53); WHITE BLOOD COUNT 11.7 K/uL (4.1-10.2)
[2016-12-16 08:39] LABS: ANION GAP 14 MEQ/L (2-14); CHLORIDE 101 MEQ/L (99-109); POTASSIUM 4.4 MEQ/L (3.7-5.4); SAMPLE HEMOLYSIS CHECK 0; SAMPLE ICTERIC CHECK 0; SAMPLE LIPEMIA CHECK 0; SODIUM 141 MEQ/L (136-147)
[2016-12-16 08:50] LABS: GFR ESTIMATE (CALCULATED) 8 mL/min/; GLUCOSE 99 mg/dL (70-99); UREA NITROGEN (BUN) 35 mg/dL (9-23)
[2016-12-16 12:49] VITALS: BP 114/56; BP 153/101
[2016-12-16 23:56] LABS: BASE EXCESS 2.8 mEq/L (-3 to +3); BICARBONATE 30.8 mEq/L (22-26); CARBOXY HGB 1.2 % (0-5); METHEMOGLOBIN 2.3 % (0-1.5); PCO2 67 mm Hg (35-45); PO2 < 28 mm Hg (80-100); SITE RF; pH 7.27 (7.35-7.45)
[2016-12-16 23:57] LABS: COMMENTS - BLOOD GASES C; DEVICE ETT; FI02 100 %; O2 FLOW 15 L/MIN
[2016-12-17] VITALS (30 sets, daily range): BP systolic 88–182; BP diastolic 46–83
[2016-12-17 00:45] LABS: BASE EXCESS 1.2 mEq/L (-3 to +3); BICARBONATE 26.6 mEq/L (22-26); CARBOXY HGB 1.9 % (0-5); COMMENTS - BLOOD GASES C+; DEVICE VENT; FI02 100 %; MECHANICAL RATE 16 resp/min; METHEMOGLOBIN 1.4 % (0-1.5); MODE AC; PCO2 45 mm Hg (35-45); PEEP 5 CM/H20; PO2 397 mm Hg (80-100); SITE RR; TIDAL VOLUME 300 ML; TOTAL RESP RATE 23 resp/min; pH 7.38 (7.35-7.45)
[2016-12-17 02:07] LABS: METH RESISTANT S AUREUS PCR POSITIVE (NEGATIVE)
[2016-12-17 02:08] LABS: PROBE CHECK PASS
[2016-12-17 02:39] LABS: EOSINOPHIL (%) 0.1 % (0-5); HEMATOCRIT 32.5 % (36.0-46.0); IMMATURE GRANULOCYTE (%) 1.9 % (0.0-0.7); IMMATURE GRANULOCYTE COUNT 0.3 K/uL; LYMPHOCYTE COUNT 0.6 K/uL (1.0-2.8); MCHC 29.8 G/DL (30.0-36.0); MCV 93.7 FL (83-99); MONOCYTE (%) 3.9 % (3-12); MONOCYTE COUNT 0.6 K/uL (0-0.8); NEUTROPHIL (%) 90.4 % (45-76); PLATELET COUNT 120 K/uL (156-360); RBC DIS.WIDTH-CV 18.8 % (11.8-14.6); RBC DIS.WIDTH-SD 64.1 % (39-53); RED BLOOD COUNT 3.47 M/uL (3.80-5.20); WHITE BLOOD COUNT 15.5 K/uL (4.1-10.2)
[2016-12-17 02:48] LABS: CHLORIDE 103 mEq/L (99-109); POTASSIUM 4.7 mEq/L (3.7-5.4); SODIUM 141 mEq/L (136-147)
[2016-12-17 02:52] LABS: ANION GAP 11 MEQ/L (2-14); TOTAL BILIRUBIN 1.3 mg/dL (0.0-1.0)
[2016-12-17 02:54] LABS: ALKALINE PHOSPHATASE 89 IU/L (3-129)
[2016-12-17 02:55] LABS: UREA NITROGEN (BUN) 24 mg/dL (9-23)
[2016-12-17 02:58] LABS: GFR ESTIMATE (CALCULATED) 13 mL/min/; GLUCOSE 198 mg/dL (70-99)
[2016-12-18] VITALS (24 sets, daily range): BP systolic 99–195; BP diastolic 43–92
[2016-12-18 05:54] LABS: EOSINOPHIL (%) 0.2 % (0-5); HEMATOCRIT 28.6 % (36.0-46.0); IMMATURE GRANULOCYTE (%) 1.5 % (0.0-0.7); IMMATURE GRANULOCYTE COUNT 0.1 K/uL; INSTRUMENT ABS NEUTROPHIL CT 7.7 K/uL; MCH 27.8 PG (29.0-34.0); MCHC 29.4 G/DL (30.0-36.0); MCV 94.7 FL (83-99); MEAN PLAT.VOLUME 10.6 uM^3 (9.5-12.4); MONOCYTE COUNT 0.6 K/uL (0-0.8); NEUTROPHIL (%) 82.1 % (45-76); NEUTROPHIL COUNT 7.7 K/uL (1.8-6.4); PLATELET COUNT 143 K/uL (156-360); RBC DIS.WIDTH-CV 18.5 % (11.8-14.6); RED BLOOD COUNT 3.02 M/uL (3.80-5.20); WHITE BLOOD COUNT 9.4 K/uL (4.1-10.2)
[2016-12-18 06:25] LABS: ANION GAP 10 MEQ/L (2-14); CHLORIDE 104 MEQ/L (99-109); GFR ESTIMATE (CALCULATED) 10 mL/min/; GLUCOSE 122 mg/dL (70-99); MAGNESIUM 2.1 mg/dl (1.3-2.7); POTASSIUM 3.8 MEQ/L (3.7-5.4); SAMPLE HEMOLYSIS CHECK 0; SAMPLE ICTERIC CHECK 0; SAMPLE LIPEMIA CHECK 0; SODIUM 142 MEQ/L (136-147); VANCOMYCIN, TROUGH 13.8 MCG/ML (10-20)
[2016-12-18 06:36] LABS: UREA NITROGEN (BUN) 41 mg/dL (9-23)
[2016-12-18 09:08] LABS: CREATINE KINASE 152 IU/L (1-294); TOTAL CK 152 IU/L (1-294)
[2016-12-18 09:58] LABS: TROP-I INTERPRETATION NEGATIVE
[2016-12-18 10:00] LABS: CK-MB 5.5 ng/mL (0.0-4.9)
[2016-12-19] VITALS (20 sets, daily range): BP systolic 107–203; BP diastolic 47–101
[2016-12-19 05:16] LABS: EOSINOPHIL (%) 0.8 % (0-5); EOSINOPHIL COUNT 0.1 K/uL (0-0.3); HEMATOCRIT 27.5 % (36.0-46.0); IMMATURE GRANULOCYTE (%) 4.5 % (0.0-0.7); IMMATURE GRANULOCYTE COUNT 0.4 K/uL; INSTRUMENT ABS NEUTROPHIL CT 6.4 K/uL; LYMPHOCYTE COUNT 1.2 K/uL (1.0-2.8); MCH 28.9 PG (29.0-34.0); MCHC 30.5 G/DL (30.0-36.0); MCV 94.5 FL (83-99); MEAN PLAT.VOLUME 10.2 uM^3 (9.5-12.4); MONOCYTE (%) 5.9 % (3-12); MONOCYTE COUNT 0.5 K/uL (0-0.8); NEUTROPHIL (%) 75.2 % (45-76); NEUTROPHIL COUNT 6.4 K/uL (1.8-6.4); PLATELET COUNT 150 K/uL (156-360); RBC DIS.WIDTH-CV 18.6 % (11.8-14.6); RBC DIS.WIDTH-SD 64.8 % (39-53); RED BLOOD COUNT 2.91 M/uL (3.80-5.20); WHITE BLOOD COUNT 8.5 K/uL (4.1-10.2)
[2016-12-19 05:45] LABS: ANION GAP 13 MEQ/L (2-14); CHLORIDE 103 MEQ/L (99-109); GFR ESTIMATE (CALCULATED) 8 mL/min/; GLUCOSE 113 mg/dL (70-99); POTASSIUM 3.8 MEQ/L (3.7-5.4); SAMPLE HEMOLYSIS CHECK 0; SAMPLE ICTERIC CHECK 0; SAMPLE LIPEMIA CHECK 0; SODIUM 142 MEQ/L (136-147); UREA NITROGEN (BUN) 52 mg/dL (9-23)
[2016-12-20] VITALS (21 sets, daily range): BP systolic 0–173; BP diastolic 0–111
[2016-12-20 05:40] LABS: HEMATOCRIT 29.3 % (36.0-46.0); MCH 28.1 PG (29.0-34.0); MCHC 30.4 G/DL (30.0-36.0); MCV 92.4 FL (83-99); MEAN PLAT.VOLUME 9.6 uM^3 (9.5-12.4); PLATELET COUNT 180 K/uL (156-360); RBC DIS.WIDTH-CV 18.6 % (11.8-14.6); RBC DIS.WIDTH-SD 62.4 % (39-53); RED BLOOD COUNT 3.17 M/uL (3.80-5.20); WHITE BLOOD COUNT 10.9 K/uL (4.1-10.2)
[2016-12-20 06:11] LABS: ANISOCYTOSIS 2+; ATYPICAL LYMPHOCYTE 1.7 %; EOSINOPHIL ABS CT 0; LYMPHOCYTES 8.7 % (15.0-45.0); MACROCYTES 2+; METAMYELOCYTES 0.9 %; MYELOCYTES 1.7 %; PLAT.SUFFICIENCY ADEQUATE; SEG.NEUTROPHILS 82.6 % (46.0-76.0); SPHEROCYTES 1+; STOMATOCYTES 1+
[2016-12-20 06:24] LABS: ANION GAP 17 MEQ/L (2-14); CHLORIDE 102 MEQ/L (99-109); GFR ESTIMATE (CALCULATED) 7 mL/min/; MAGNESIUM 2.2 mg/dl (1.3-2.7); POTASSIUM 4.3 MEQ/L (3.7-5.4); SAMPLE HEMOLYSIS CHECK 0; SAMPLE ICTERIC CHECK 0; SAMPLE LIPEMIA CHECK 0; SODIUM 141 MEQ/L (136-147); UREA NITROGEN (BUN) 62 mg/dL (9-23)
[2016-12-20 06:25] LABS: GLUCOSE 72 mg/dL (70-99)
[2016-12-21] VITALS (19 sets, daily range): BP systolic 97–177; BP diastolic 51–111
[2016-12-21 04:51] LABS: HEMATOCRIT 27.2 % (36.0-46.0); MCH 27.8 PG (29.0-34.0); MCHC 30.1 G/DL (30.0-36.0); MCV 92.2 FL (83-99); MEAN PLAT.VOLUME 9.3 uM^3 (9.5-12.4); PLATELET COUNT 140 K/uL (156-360); RBC DIS.WIDTH-CV 18.8 % (11.8-14.6); RED BLOOD COUNT 2.95 M/uL (3.80-5.20)
[2016-12-21 04:59] LABS: CHLORIDE 104 mEq/L (99-109); POTASSIUM 4.1 mEq/L (3.7-5.4); SODIUM 143 mEq/L (136-147)
[2016-12-21 05:01] LABS: GLUCOSE 61 mg/dL (70-99)
[2016-12-21 05:03] LABS: ANION GAP 17 MEQ/L (2-14)
[2016-12-21 05:05] LABS: GFR ESTIMATE (CALCULATED) 11 mL/min/
[2016-12-21 05:06] LABS: UREA NITROGEN (BUN) 36 mg/dL (9-23)
[2016-12-21 05:29] LABS: ABS NEUTROPHIL COUNT 8.4; BASOPHILS 0.9 %; EOSINOPHIL ABS CT 0; INSTRUMENT ABS NEUTROPHIL CT 7.4 K/uL; LYMPHOCYTES 13.9 % (15.0-45.0); SEG.NEUTROPHILS 83.5 % (46.0-76.0)
[2016-12-21 14:17] LABS: ANISOCYTOSIS 2+; MACROCYTES 2+; OVALOCYTES 1+; PLAT.SUFFICIENCY ADEQUATE; PLATELET CLUMPS PRESENT - PLATELET COUNT APPEARS ADQ.; SPHEROCYTES 1+
[2016-12-22] VITALS (7 sets, daily range): BP systolic 120–202; BP diastolic 63–97
[2016-12-22 09:02] LABS: EOSINOPHIL (%) 0.6 % (0-5); EOSINOPHIL COUNT 0.1 K/uL (0-0.3); HEMATOCRIT 27.9 % (36.0-46.0); IMMATURE GRANULOCYTE (%) 4.5 % (0.0-0.7); IMMATURE GRANULOCYTE COUNT 0.4 K/uL; INSTRUMENT ABS NEUTROPHIL CT 6.7 K/uL; LYMPHOCYTE COUNT 1.3 K/uL (1.0-2.8); MCH 28.4 PG (29.0-34.0); MCHC 30.5 G/DL (30.0-36.0); MCV 93.3 FL (83-99); MEAN PLAT.VOLUME 9.3 uM^3 (9.5-12.4); MONOCYTE COUNT 0.9 K/uL (0-0.8); NEUTROPHIL (%) 71.4 % (45-76); NEUTROPHIL COUNT 6.7 K/uL (1.8-6.4); PLATELET COUNT 168 K/uL (156-360); RBC DIS.WIDTH-CV 18.7 % (11.8-14.6); RBC DIS.WIDTH-SD 63.3 % (39-53); RED BLOOD COUNT 2.99 M/uL (3.80-5.20); WHITE BLOOD COUNT 9.4 K/uL (4.1-10.2)
[2016-12-22 09:27] LABS: ANION GAP 18 MEQ/L (2-14); CHLORIDE 104 MEQ/L (99-109); POTASSIUM 3.7 MEQ/L (3.7-5.4); SAMPLE HEMOLYSIS CHECK 0; SAMPLE ICTERIC CHECK 0; SAMPLE LIPEMIA CHECK 0; SODIUM 143 MEQ/L (136-147); UREA NITROGEN (BUN) 47 mg/dL (9-23)
[2016-12-22 09:34] LABS: GFR ESTIMATE (CALCULATED) 8 mL/min/; GLUCOSE 93 mg/dL (70-99)
[2016-12-23 01:18] VITALS: BP 120/70
[2016-12-23 02:04] LABS: C DIFF TOXIN POSITIVE (NEGATIVE)
[2016-12-23 02:10] LABS: PROBE CHECK PASS
[2016-12-23 07:56] VITALS: BP 147/100
[2016-12-23 11:45] VITALS: BP 125/58
[2016-12-23 16:15] VITALS: BP 135/64
[2016-12-23 22:53] VITALS: BP 148/66
[2016-12-23 23:25] VITALS: BP 148/66
[2016-12-24 07:41] VITALS: BP 168/79
[2016-12-24 15:53] VITALS: BP 152/71
[2016-12-24 21:00] VITALS: BP 140/80
[2016-12-25 08:09] VITALS: BP 164/77
[2016-12-25 12:34] LABS: BASOPHIL COUNT 0.1 K/uL (0-0.1); EOSINOPHIL (%) 0.4 % (0-5); EOSINOPHIL COUNT 0.1 K/uL (0-0.3); HEMATOCRIT 31.1 % (36.0-46.0); IMMATURE GRANULOCYTE (%) 2.8 % (0.0-0.7); IMMATURE GRANULOCYTE COUNT 0.4 K/uL; INSTRUMENT ABS NEUTROPHIL CT 10.7 K/uL; LYMPHOCYTE COUNT 1.6 K/uL (1.0-2.8); MCH 30.1 PG (29.0-34.0); MCHC 29.3 G/DL (30.0-36.0); MONOCYTE (%) 6.7 % (3-12); MONOCYTE COUNT 0.9 K/uL (0-0.8); NEUTROPHIL (%) 77.8 % (45-76); NEUTROPHIL COUNT 10.7 K/uL (1.8-6.4); NRBC (%) 0.7 /100 WBC (0-0); RBC DIS.WIDTH-CV 20.6 % (11.8-14.6); RED BLOOD COUNT 3.02 M/uL (3.80-5.20); WHITE BLOOD COUNT 13.8 K/uL (4.1-10.2)
[2016-12-25 12:41] LABS: ANION GAP 16 MEQ/L (2-14); CHLORIDE 107 MEQ/L (99-109); POTASSIUM 4.2 MEQ/L (3.7-5.4); SAMPLE HEMOLYSIS CHECK 0; SAMPLE ICTERIC CHECK 0; SAMPLE LIPEMIA CHECK 0; SODIUM 145 MEQ/L (136-147)
[2016-12-25 12:42] LABS: PLATELET COUNT 282 K/uL (156-360)
[2016-12-25 12:55] LABS: GFR ESTIMATE (CALCULATED) 7 mL/min/; GLUCOSE 89 mg/dL (70-99); UREA NITROGEN (BUN) 41 mg/dL (9-23)
[2016-12-25 14:07] LABS: POINT-OF-CARE METER ID UU13113675
[2016-12-25 14:53] VITALS: BP 114/60
[2016-12-25 23:22] VITALS: BP 115/59
[2016-12-26 07:28] VITALS: BP 164/70
[2016-12-26 13:25] LABS: HEMATOCRIT 25.6 % (36.0-46.0); MCH 30.8 PG (29.0-34.0); MCHC 30.1 G/DL (30.0-36.0); MCV 102.4 FL (83-99); MEAN PLAT.VOLUME 9.5 uM^3 (9.5-12.4); NRBC (%) 0.4 /100 WBC (0-0); PLATELET COUNT 287 K/uL (156-360); RBC DIS.WIDTH-CV 21.4 % (11.8-14.6); RBC DIS.WIDTH-SD 72.5 % (39-53); WHITE BLOOD COUNT 16.3 K/uL (4.1-10.2)
[2016-12-26 13:57] LABS: ANION GAP 17 MEQ/L (2-14); CHLORIDE 109 MEQ/L (99-109); GFR ESTIMATE (CALCULATED) 5 mL/min/; GLUCOSE 100 mg/dL (70-99); SAMPLE HEMOLYSIS CHECK 0; SAMPLE ICTERIC CHECK 0; SAMPLE LIPEMIA CHECK 0; SODIUM 147 MEQ/L (136-147); UREA NITROGEN (BUN) 50 mg/dL (9-23)
[2016-12-26 14:03] LABS: HBSG INDEX 0.16
[2016-12-26 14:08] LABS: HEPATITIS B SURFACE ANTIBODY REACTIVE
[2016-12-27 01:38] VITALS: BP 117/55
[2016-12-27 07:01] LABS: BASOPHIL COUNT 0.1 K/uL (0-0.1); EOSINOPHIL (%) 0.1 % (0-5); HEMATOCRIT 33.2 % (36.0-46.0); IMMATURE GRANULOCYTE (%) 1.7 % (0.0-0.7); IMMATURE GRANULOCYTE COUNT 0.3 K/uL; INSTRUMENT ABS NEUTROPHIL CT 17.3 K/uL; LYMPHOCYTE COUNT 1.4 K/uL (1.0-2.8); MCH 29.7 PG (29.0-34.0); MCHC 28.6 G/DL (30.0-36.0); MCV 103.8 FL (83-99); MONOCYTE (%) 5.6 % (3-12); MONOCYTE COUNT 1.1 K/uL (0-0.8); NEUTROPHIL (%) 85.4 % (45-76); NEUTROPHIL COUNT 17.3 K/uL (1.8-6.4); NRBC (%) 0.6 /100 WBC (0-0); PLATELET COUNT 241 K/uL (156-360); RBC DIS.WIDTH-CV 22.2 % (11.8-14.6); RBC DIS.WIDTH-SD 75.1 % (39-53); WHITE BLOOD COUNT 20.3 K/uL (4.1-10.2)
[2016-12-27 07:21] VITALS: BP 145/61
[2016-12-27 07:24] LABS: ANION GAP 15 MEQ/L (2-14); CHLORIDE 102 MEQ/L (99-109); GFR ESTIMATE (CALCULATED) 11 mL/min/; POTASSIUM 3.8 MEQ/L (3.7-5.4); SAMPLE HEMOLYSIS CHECK 0; SAMPLE ICTERIC CHECK 0; SAMPLE LIPEMIA CHECK 0; SODIUM 145 MEQ/L (136-147)
[2016-12-27 07:25] LABS: GLUCOSE 69 mg/dL (70-99); UREA NITROGEN (BUN) 23 mg/dL (9-23)
[2016-12-27 15:44] VITALS: BP 129/63
[2016-12-28 01:22] VITALS: BP 131/60
[2016-12-28 07:38] LABS: BASOPHIL COUNT 0.1 K/uL (0-0.1); EOSINOPHIL (%) 0.1 % (0-5); HEMATOCRIT 26.4 % (36.0-46.0); IMMATURE GRANULOCYTE (%) 1.1 % (0.0-0.7); IMMATURE GRANULOCYTE COUNT 0.3 K/uL; INSTRUMENT ABS NEUTROPHIL CT 24.9 K/uL; LYMPHOCYTE COUNT 1.5 K/uL (1.0-2.8); MCH 30.6 PG (29.0-34.0); MCHC 29.5 G/DL (30.0-36.0); MCV 103.5 FL (83-99); MONOCYTE (%) 4.7 % (3-12); MONOCYTE COUNT 1.3 K/uL (0-0.8); NEUTROPHIL (%) 88.5 % (45-76); NEUTROPHIL COUNT 24.9 K/uL (1.8-6.4); NRBC (%) 0.5 /100 WBC (0-0); PLATELET COUNT 276 K/uL (156-360); RBC DIS.WIDTH-CV 22.6 % (11.8-14.6); RBC DIS.WIDTH-SD 80.7 % (39-53); WHITE BLOOD COUNT 28.2 K/uL (4.1-10.2)
[2016-12-28 07:42] LABS: RED BLOOD COUNT 2.55 M/uL (3.80-5.20)
[2016-12-28 08:05] LABS: ANION GAP 15 MEQ/L (2-14); CHLORIDE 103 MEQ/L (99-109); GFR ESTIMATE (CALCULATED) 8 mL/min/; POTASSIUM 3.7 MEQ/L (3.7-5.4); SAMPLE HEMOLYSIS CHECK 0; SAMPLE ICTERIC CHECK 0; SAMPLE LIPEMIA CHECK 0; SODIUM 146 MEQ/L (136-147); UREA NITROGEN (BUN) 28 mg/dL (9-23)
[2016-12-28 08:07] LABS: GLUCOSE 131 mg/dL (70-99)
[2016-12-28 12:03] VITALS: BP 137/61
[2016-12-28 12:04] LABS: C DIFF TOXIN ND (NEGATIVE)
[2016-12-28 15:53] VITALS: BP 111/56
[2016-12-29 00:13] VITALS: BP 152/68
[2016-12-29 07:25] LABS: HEMATOCRIT 28.3 % (36.0-46.0); MCH 30.8 PG (29.0-34.0); MCHC 28.6 G/DL (30.0-36.0); NRBC (%) 0.4 /100 WBC (0-0); RBC DIS.WIDTH-CV 24.2 % (11.8-14.6); RED BLOOD COUNT 2.63 M/uL (3.80-5.20); WHITE BLOOD COUNT 24.5 K/uL (4.1-10.2)
[2016-12-29 07:27] LABS: MCV 107.6 FL (83-99)
[2016-12-29 07:29] LABS: EOSINOPHIL (%) 0 % (0-5); IMMATURE GRANULOCYTE (%) 1.1 % (0.0-0.7); IMMATURE GRANULOCYTE COUNT 0.3 K/uL; INSTRUMENT ABS NEUTROPHIL CT 21.6 K/uL; LYMPHOCYTE COUNT 1.3 K/uL (1.0-2.8); MONOCYTE (%) 5.1 % (3-12); MONOCYTE COUNT 1.3 K/uL (0-0.8); NEUTROPHIL (%) 88.2 % (45-76); NEUTROPHIL COUNT 21.6 K/uL (1.8-6.4)
[2016-12-29 07:30] VITALS: BP 180/92
[2016-12-29 07:38] LABS: ANION GAP 16 MEQ/L (2-14); CHLORIDE 102 MEQ/L (99-109); GFR ESTIMATE (CALCULATED) 14 mL/min/; POTASSIUM 3.8 MEQ/L (3.7-5.4); SAMPLE HEMOLYSIS CHECK 0; SAMPLE ICTERIC CHECK 0; SAMPLE LIPEMIA CHECK 0; SODIUM 143 MEQ/L (136-147); UREA NITROGEN (BUN) 14 mg/dL (9-23)
[2016-12-29 07:39] LABS: GLUCOSE 64 mg/dL (70-99)
[2016-12-29 07:46] LABS: HEMATOLOGY COMMENT 1 SMEAR COMPATIBLE; MEAN PLAT.VOLUME 9.2 uM^3 (9.5-12.4); PLAT.SUFFICIENCY ADEQUATE
[2016-12-29 08:04] LABS: PLATELET COUNT 179 K/uL (156-360)
[2016-12-29 11:55] LABS: POINT-OF-CARE METER ID UU13113725
[2016-12-29 12:06] LABS: GLUCOSE 110 mg/dL (70-99)
[2016-12-29 16:09] VITALS: BP 119/21
[2016-12-29 23:58] VITALS: BP 122/50
[2016-12-30 03:00] VITALS: BP 98/55
[2016-12-30 03:50] LABS: BASOPHIL COUNT 0.1 K/uL (0-0.1); EOSINOPHIL (%) 0.1 % (0-5); HEMATOCRIT 27.4 % (36.0-46.0); IMMATURE GRANULOCYTE (%) 1.9 % (0.0-0.7); IMMATURE GRANULOCYTE COUNT 0.4 K/uL; INSTRUMENT ABS NEUTROPHIL CT 18.1 K/uL; LYMPHOCYTE COUNT 1.6 K/uL (1.0-2.8); MCH 31.5 PG (29.0-34.0); MCHC 28.8 G/DL (30.0-36.0); MCV 109.2 FL (83-99); MONOCYTE (%) 5.3 % (3-12); MONOCYTE COUNT 1.1 K/uL (0-0.8); NEUTROPHIL (%) 84.9 % (45-76); NEUTROPHIL COUNT 18.1 K/uL (1.8-6.4); NRBC (%) 0.3 /100 WBC (0-0); RBC DIS.WIDTH-CV 24.7 % (11.8-14.6); RBC DIS.WIDTH-SD 96.2 % (39-53); RED BLOOD COUNT 2.51 M/uL (3.80-5.20); WHITE BLOOD COUNT 21.3 K/uL (4.1-10.2)
[2016-12-30 04:10] LABS: CHLORIDE 103 mEq/L (99-109); POTASSIUM 3.6 mEq/L (3.7-5.4); SODIUM 144 mEq/L (136-147)
[2016-12-30 04:12] LABS: GLUCOSE 99 mg/dL (70-99)
[2016-12-30 04:13] LABS: ANION GAP 15 MEQ/L (2-14)
[2016-12-30 04:15] LABS: GFR ESTIMATE (CALCULATED) 9 mL/min/
[2016-12-30 04:21] LABS: TROP-I INTERPRETATION NEGATIVE; TROPONIN-I 0.08 ng/mL (0.0-0.30)
[2016-12-30 04:23] LABS: UREA NITROGEN (BUN) 22 mg/dL (9-23)
[2016-12-30 05:30] LABS: MEAN PLAT.VOLUME 9.9 uM^3 (9.5-12.4); PLAT.SUFFICIENCY ADEQUATE; PLATELET COUNT 196 K/uL (156-360)
[2016-12-30 11:51] VITALS: BP 139/63
[2016-12-30 12:00] LABS: EOSINOPHIL (%) 0.1 % (0-5); HEMATOCRIT 25.3 % (36.0-46.0); IMMATURE GRANULOCYTE (%) 2.4 % (0.0-0.7); IMMATURE GRANULOCYTE COUNT 0.6 K/uL; INSTRUMENT ABS NEUTROPHIL CT 21.8 K/uL; LYMPHOCYTE COUNT 0.7 K/uL (1.0-2.8); MCH 32.3 PG (29.0-34.0); MCHC 29.6 G/DL (30.0-36.0); MCV 109.1 FL (83-99); MONOCYTE (%) 5.8 % (3-12); MONOCYTE COUNT 1.4 K/uL (0-0.8); NEUTROPHIL (%) 88.7 % (45-76); NEUTROPHIL COUNT 21.8 K/uL (1.8-6.4); NRBC (%) 0.3 /100 WBC (0-0); RBC DIS.WIDTH-CV 24.1 % (11.8-14.6); RBC DIS.WIDTH-SD 96.1 % (39-53); RED BLOOD COUNT 2.32 M/uL (3.80-5.20); WHITE BLOOD COUNT 24.5 K/uL (4.1-10.2)
[2016-12-30 12:15] LABS: ANION GAP 9 MEQ/L (2-14); CHLORIDE 101 MEQ/L (99-109); GFR ESTIMATE (CALCULATED) 29 mL/min/; GLUCOSE 95 mg/dL (70-99); POTASSIUM 3.5 MEQ/L (3.7-5.4); SAMPLE HEMOLYSIS CHECK 0; SAMPLE ICTERIC CHECK 0; SAMPLE LIPEMIA CHECK 0; SODIUM 140 MEQ/L (136-147); UREA NITROGEN (BUN) 6 mg/dL (9-23)
[2016-12-30 12:23] LABS: MEAN PLAT.VOLUME 9.1 uM^3 (9.5-12.4); PLAT.SUFFICIENCY DECREASED; PLATELET COUNT 103 K/uL (156-360)
[2016-12-30 16:30] VITALS: BP 101/53
[2016-12-30 23:58] VITALS: BP 140/70
[2016-12-31 06:23] LABS: EOSINOPHIL (%) 0.1 % (0-5); HEMATOCRIT 24.7 % (36.0-46.0); IMMATURE GRANULOCYTE (%) 1.1 % (0.0-0.7); IMMATURE GRANULOCYTE COUNT 0.2 K/uL; INSTRUMENT ABS NEUTROPHIL CT 12.1 K/uL; LYMPHOCYTE COUNT 0.9 K/uL (1.0-2.8); MCH 31.6 PG (29.0-34.0); MCHC 28.7 G/DL (30.0-36.0); MCV 109.8 FL (83-99); MEAN PLAT.VOLUME 10.4 uM^3 (9.5-12.4); MONOCYTE (%) 8.1 % (3-12); MONOCYTE COUNT 1.2 K/uL (0-0.8); NEUTROPHIL (%) 84.2 % (45-76); NEUTROPHIL COUNT 12.1 K/uL (1.8-6.4); NRBC (%) 0.1 /100 WBC (0-0); PLATELET COUNT 111 K/uL (156-360); RBC DIS.WIDTH-CV 23.8 % (11.8-14.6); RBC DIS.WIDTH-SD 94.4 % (39-53); RED BLOOD COUNT 2.25 M/uL (3.80-5.20); WHITE BLOOD COUNT 14.4 K/uL (4.1-10.2)
[2016-12-31 06:52] LABS: ANION GAP 14 MEQ/L (2-14); CHLORIDE 104 MEQ/L (99-109); GFR ESTIMATE (CALCULATED) 16 mL/min/; GLUCOSE 89 mg/dL (70-99); POTASSIUM 3.7 MEQ/L (3.7-5.4); SAMPLE HEMOLYSIS CHECK 0; SAMPLE ICTERIC CHECK 0; SAMPLE LIPEMIA CHECK 0; SODIUM 145 MEQ/L (136-147); UREA NITROGEN (BUN) 13 mg/dL (9-23)
[2016-12-31 07:39] VITALS: BP 122/71
[2016-12-31 12:58] LABS: EOSINOPHIL (%) 0.1 % (0-5); HEMATOCRIT 26.8 % (36.0-46.0); IMMATURE GRANULOCYTE (%) 0.8 % (0.0-0.7); IMMATURE GRANULOCYTE COUNT 0.1 K/uL; INSTRUMENT ABS NEUTROPHIL CT 12.5 K/uL; MCH 32.1 PG (29.0-34.0); MCHC 29.1 G/DL (30.0-36.0); MCV 110.3 FL (83-99); MONOCYTE (%) 7.7 % (3-12); MONOCYTE COUNT 1.1 K/uL (0-0.8); NEUTROPHIL (%) 84.3 % (45-76); NEUTROPHIL COUNT 12.5 K/uL (1.8-6.4); NRBC (%) 0.1 /100 WBC (0-0); RBC DIS.WIDTH-CV 23.9 % (11.8-14.6); RBC DIS.WIDTH-SD 95.7 % (39-53); RED BLOOD COUNT 2.43 M/uL (3.80-5.20); WHITE BLOOD COUNT 14.8 K/uL (4.1-10.2)
[2016-12-31 13:22] LABS: MEAN PLAT.VOLUME 9.6 uM^3 (9.5-12.4); PLAT.SUFFICIENCY DECREASED; PLATELET COUNT 113 K/uL (156-360)
[2016-12-31 15:39] VITALS: BP 107/53
[2016-12-31 21:36] VITALS: BP 130/76
[2017-01-01 00:13] VITALS: BP 136/82
[2017-01-01 06:16] LABS: HEMATOCRIT 25.6 % (36.0-46.0); MCH 31.6 PG (29.0-34.0); MCHC 28.9 G/DL (30.0-36.0); MCV 109.4 FL (83-99); MEAN PLAT.VOLUME 9.9 uM^3 (9.5-12.4); PLATELET COUNT 142 K/uL (156-360); RBC DIS.WIDTH-CV 23.3 % (11.8-14.6); RBC DIS.WIDTH-SD 92.5 % (39-53); RED BLOOD COUNT 2.34 M/uL (3.80-5.20); WHITE BLOOD COUNT 14.3 K/uL (4.1-10.2)
[2017-01-01 06:27] LABS: ANION GAP 12 MEQ/L (2-14); CHLORIDE 102 MEQ/L (99-109); GFR ESTIMATE (CALCULATED) 10 mL/min/; POTASSIUM 3.8 MEQ/L (3.7-5.4); SAMPLE HEMOLYSIS CHECK 0; SAMPLE ICTERIC CHECK 0; SAMPLE LIPEMIA CHECK 0; SODIUM 142 MEQ/L (136-147)
[2017-01-01 06:28] LABS: GLUCOSE 113 mg/dL (70-99); UREA NITROGEN (BUN) 23 mg/dL (9-23)
[2017-01-01 08:17] VITALS: BP 105/59
[2017-01-01 16:18] VITALS: BP 100/51
[2017-01-02 07:00] VITALS: BP 104/54
[2017-01-02 08:09] LABS: HEMATOCRIT 24.6 % (36.0-46.0); MCHC 30.5 G/DL (30.0-36.0); MCV 108.4 FL (83-99); MEAN PLAT.VOLUME 10.1 uM^3 (9.5-12.4); PLATELET COUNT 160 K/uL (156-360); RBC DIS.WIDTH-CV 22.9 % (11.8-14.6); RBC DIS.WIDTH-SD 90.4 % (39-53); RED BLOOD COUNT 2.27 M/uL (3.80-5.20); WHITE BLOOD COUNT 15.1 K/uL (4.1-10.2)
[2017-01-02 08:19] LABS: ANION GAP 13 MEQ/L (2-14); CHLORIDE 104 MEQ/L (99-109); GFR ESTIMATE (CALCULATED) 8 mL/min/; GLUCOSE 86 mg/dL (70-99); POTASSIUM 3.6 MEQ/L (3.7-5.4); SAMPLE HEMOLYSIS CHECK 0; SAMPLE ICTERIC CHECK 0; SAMPLE LIPEMIA CHECK 0; SODIUM 143 MEQ/L (136-147); UREA NITROGEN (BUN) 32 mg/dL (9-23)
[2017-01-02] MEDS ORDERED: VANCOCIN 250 M250 MG PO (13:18)
[2017-01-02] MEDS ORDERED: NIFEDIPINE20 MG PO (13:18)
[2017-01-02] MEDS ORDERED: TRAMADOL HCL50 MG PO (13:18)
== END 2017-01-02 16:08 | DRG 853 ==
LOC: EME 16:09 → EDOF 12-13 01:24 → 5WEST 12-13 01:24 → ENRESERV 12-13 01:25 → 5WEST 12-13 02:57 → 5EAST 12-13 09:38 → 4WEST 12-13 09:38 → 5WEST 12-13 09:38 → CANRESERV 12-13 09:44 → ENRESERV 12-13 09:44 → 4WEST 12-17 00:10 → ENRESERV 12-21 18:17 → 5EAST 12-22 13:48
PROVIDERS: Emergency Medicine; Hospitalist; Internal Medicine; Internal Medicine Critical Care Medicine; Internal Medicine Nephrology; Internal Medicine Pulmonary Disease; Nurse Practitioner Adult Health; Student in an Organized Health Care Education/Training Program
DX: A41.9 Sepsis, unspecified organism (principal); J15.212 Pneumonia due to Methicillin resistant Staphylococcus aureus; G93.41 Metabolic encephalopathy; I67.4 Hypertensive encephalopathy; I16.1 Hypertensive emergency; I13.2 Hypertensive heart and chronic kidney disease with heart failure and with stage 5 chronic kidney disease, or end stage renal disease; N18.6 End stage renal disease; I50.9 Heart failure, unspecified; I46.9 Cardiac arrest, cause unspecified; I49.01 Ventricular fibrillation; R40.20 Unspecified coma; J96.90 Respiratory failure, unspecified, unspecified whether with hypoxia or hypercapnia; Z66 Do not resuscitate; A04.72 Enterocolitis due to Clostridium difficile, not specified as recurrent; T82.868A Thrombosis due to vascular prosthetic devices, implants and grafts, initial encounter; Y83.2 Surgical operation with anastomosis, bypass or graft as the cause of abnormal reaction of the patient, or of later complication, without mention of misadventure at the time of the procedure; R73.9 Hyperglycemia, unspecified; D63.1 Anemia in chronic kidney disease; D69.6 Thrombocytopenia, unspecified; J98.11 Atelectasis; Z99.2 Dependence on renal dialysis; Z85.038 Personal history of other malignant neoplasm of large intestine; Z90.49 Acquired absence of other specified parts of digestive tract; Z91.14 Patient's other noncompliance with medication regimen
CPT/HCPCS: 31500; 36600; 70450; 70551; 71010; 71020; 74176; 80048; 80048 91; 80053; 80069; 80202; 81003; 82550; 82553; 82607; 82746; 82803; 82948; 83605; 83735; 84100; 84443; 84484; 84999; 85025; 85025 91; 85027; 86706; 87040; 87070; 87077; 87147; 87186; 87205; 87340; 87449; 87493; 87641; 92526 GN; 92610 GN; 93005; 93306; 93971; 94002; 94003; 94640; 94640 76; 94760; 94799; 95819; 97530 GO; 97530 GP; 99202; 99281; 99285; C1725; C1751; C1752; C1757; C1769; C1894; C2628; G8978 GP CN; G8979 GP CK; G8987 GO CI; G8988 GO CL; J0295; J0360; J0583; J0690; J0692; J0881; J1630; J1644; J2060; J2250; J2704; J3010; J3370; J7040; J7050; P9047; S0020; S0030